=== PATIENT | male | born 1995 | race Caucasian/White ===

== ENCOUNTER 2020-02-23 14:49 | Emergency (ER) | payer BC, OTHER ==
[~2020-02-23] VITALS: Ht 180.3 cm; Wt 84.1 kg
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
[2020-02-23 15:13] VITALS: BP 138/89
[2020-02-23] MEDS ORDERED: LIDOCAINE-MPF 1%, 5ML ONE ×3 (15:28→15:43)
[2020-02-23] MEDS ORDERED: BUPIVACAINE 0.25% ONE ×2 (15:28→15:41)
[2020-02-23] MEDS ORDERED: HYDROcodone/APAP 10/325 MG TABLET PO ONE (15:30)
[2020-02-23] MEDS ORDERED: PLEASE ENTER HEIGHT AND WEIGHT MC SCH (15:30)
[2020-02-23] MEDS ORDERED: HYDROcodone/APAP 10/325 MG TABLET ONE (15:50)
--- NOTE | 2020-02-23 15:56 | NUR ---
CHEYANNE GRAY NUMBED PT'S TOES AND CLIPPED HANGING SKIN. PLAN IS TO WAIT FOR NUMBING TO TAKE TOTAL EFFECT BEFORE CLEANING OF THE TOES AND EXAMINING THE NAIL BEDS.
--- NOTE | 2020-02-23 15:57 | NUR ---
PT TOLERATED NUMBING PROCEDURE AND WAS MEDICATED FOR PAIN PER THE MAR. PT RESTING ON ED GURNEY AT THIS TIME WITH SIGNIFICANT OTHER BEDSIDE.
[2020-02-23] MEDS ORDERED: BUPIVACAINE 0.25% INFIL ONE (16:00)
[2020-02-23] MEDS ORDERED: LIDOCAINE-MPF 1%, 5ML INFIL ONE (16:00)
--- NOTE | 2020-02-23 16:40 | NUR ---
CHEYANNE GRAY BEDSIDE. EXAMINATION IN PROGRESS.
--- NOTE | 2020-02-23 17:53 | NUR ---
PT REC'VD DISCHARGE INSTRUCTIONS AND EDUCATION. PT HAD NO FURTHER QUESTIONS. PT DEMONSTRATED USING CRUTCHES EFFECTIVELY. AWAITING BOOT FOR LEFT FOOT.
--- NOTE | 2020-02-23 18:21 | NUR ---
ROCKER SHOE ON AND INSTRUCTIONS GIVEN
== END 2020-02-23 18:22 | disposition home or self-care (01) ==
LOC: ED 17:55
DX: S91.202A Unspecified open wound of left great toe with damage to nail, initial encounter (principal); S91.205A Unspecified open wound of left lesser toe(s) with damage to nail, initial encounter; X58.XXXA Exposure to other specified factors, initial encounter; Y93.89 Activity, other specified; Y92.89 Other specified places as the place of occurrence of the external cause; Y99.8 Other external cause status
CPT/HCPCS: 64450; 99284